=== PATIENT | male | born 1970 | race American Indian/Alaskan Native ===

== ENCOUNTER 2016-09-22 23:00 | Inpatient (IN) | payer MEDICARE, OTHER ==
--- NOTE | ~2016-09-22 | CN ---
Consultation Report [facility] [address] [place]. [address] NAME: ANDREW MEDINA : 66 STATUS : ADM IN PAT#: [id number] AGE: 46 ADM/REG DATE : 09/23/16 MR#: [id number] REPORT SERV DATE: 09/23/16 DICTATED BY: KARTIK VIVAS DATE: 09/23/16 REPORT STATUS : Draft TRANSCRIBED BY: MODTate DATE: 09/23/16 CARDIOLOGY CONSULTATION NOTE DATE OF CONSULTATION: 09/23/2016 REASON FOR CONSULTATION: Chest pain with features of unstable angina. HISTORY OF PRESENT ILLNESS: Mr. Medina is a pleasant 46-year-old man with a history of diabetes, end-stage renal disease, and advanced coronary artery disease. The patient is status post coronary artery bypass grafting surgery in the year 2013. The patient was previously followed by Dr. Grant, but is now in need of a new smoking pipe repairer given Dr. Grant' recent departure from the area. The patient reports that he was in his usual state of health until dialysis yesterday. The patient reports the abrupt onset of a right-sided/substernal "cramping" type chest pain with radiation through to the back. The patient reports an associated sensation of palpitations. He reports that "my heart was beating hard." The patient felt that the symptoms were probably provoked by excess volume removal from hemodialysis. He reports he has had occasional symptoms over the last several months, but these usually resolve following hemodialysis. However, yesterday, the patient continued to have paroxysms of right-sided chest pain lasting approximately five minutes. The patient also continued to have palpitations. He called his event sales representative and was instructed to present to the emergency room. The patient did have some chest pain last night, but this was relieved with nitroglycerin paste. The patient presently denies chest pain, orthopnea, dizziness, or syncope. He does report that during the episode of palpitations, he used a home blood pressure cuff to check his blood pressure and heart rate. His blood pressure was "elevated" with a systolic blood pressure of approximately 170. He reports his heart rate was registering in the 40s. PAST MEDICAL HISTORY: 1. Type 2 diabetes. 2. Coronary artery disease, status post coronary artery bypass grafting surgery. 3. End-stage renal disease. 4. Dyslipidemia. 5. Hypertension. PAST SURGICAL HISTORY: Significant for coronary artery bypass grafting surgery in the year [address] Pisano. The patient has had a left arm AV fistula. He has had ophthalmologic procedures for retinal detachment. FAMILY HISTORY: Positive for coronary heart disease and congestive heart failure in his father, though this did not occur at an early age. Otherwise, noncontributory. SOCIAL HISTORY: The patient reports distant tobacco use during his teenage years, but none Consultation Report [address] [address] NAME: ANDREW MEDINA : 66 STATUS : ADM IN PAT#: [id number] AGE: 46 ADM/REG DATE : 09/23/16 MR#: [id number] REPORT SERV DATE: 09/23/16 DICTATED BY: KARTIK VIVAS DATE: 09/23/16 REPORT STATUS : Draft TRANSCRIBED BY: RAHEEL DATE: 09/23/16 since that time. He denies alcohol or drug use. ALLERGIES: THE PATIENT DENIES MEDICATION ALLERGIES ASIDE FROM THE FACT THAT HE WAS TOLD NOT TO BE EXPOSED TO IODINE CONTRAST DUE TO HIS DIAGNOSIS OF CHRONIC KIDNEY DISEASE. HOME MEDICATIONS: 1. Norvasc 10 mg p.o. q.a.m. 2. Aspirin 81 mg daily. 3. Atorvastatin 40 mg p.o. q.h.s. 4. Plavix 75 mg p.o. daily. 5. Cardura 4 mg p.o. q.h.s. 6. Sliding scale insulin. 7. Metoprolol tartrate 25 mg p.o. twice daily. 8. Torsemide 20 mg p.o. twice daily. PHYSICAL EXAMINATION: VITAL SIGNS: Temperature is 97.7 degrees Fahrenheit, blood pressure is 178/90 mmHg, heart rate is currently 91 beats per minute and regular, and respirations 20. CONSTITUTIONAL: The patient is an obese man in no acute distress. EYES: PERRL, EOMI, clear conjunctiva. HEAD/MNT: NCAT with moist mucous membranes and grossly normal hard and soft palate. NECK: Supple with no obvious thyromegaly or lymphadenopathy CARDIOVASCULAR: There is a regular rhythm with occasional ectopy. There is a normal S1 and a physiologically split second heart sound. No significant murmurs, rubs, or gallops are noted. The jugular venous pressure appears to be grossly normal. PULMONARY: Grossly clear to auscultation bilaterally with no wheezing, rales, rhonchi, or dullness to percussion. ABDOMINAL: Soft, non-tender, non-distended with no hepatosplenomegaly noted. EXTREMITIES: There is trace to 1+ ankle edema with no significant clubbing or cyanosis noted. MUSCULOSKELETAL: Grossly normal strength and range of motion in all extremities INTEGUMENTARY: Skin appears intact with no bruises, wounds or active lesions noted NEURO/PSYC: Alert and oriented x3, with no dysarthria, facial droop or lateralizing weakness noted. IMAGIN-lead EKG: The 12-lead EKG shows normal sinus rhythm with diffuse ST-segment changes which are suggestive of ischemia, though technically nonspecific. LABORATORY DATA: Sodium is 134, potassium 4.1, chloride is 95, BUN 37, creatinine is 5.45, glucose 192. Magnesium is 1.7. Cell count showed a white blood cell count of 8.7, hemoglobin 12, hematocrit 34, platelets 232. INR is 1.0. Troponin I is mildly elevated at 0.13. ASSESSMENT AND PLAN: Consultation Report [place] [id number] [facility] [place]. [address] NAME: ANDREW MEDINA : 66 STATUS : ADM IN [facility]#: [id number] AGE: 46 ADM/REG DATE : 09/23/16 MR#: [id number] REPORT SERV DATE: 09/23/16 DICTATED BY: KARTIK VIVAS DATE: 09/23/16 REPORT STATUS : Draft TRANSCRIBED BY: RAHEEL DATE: 09/23/16 1. Chest pain with features of angina: The patient does give a concerning story for angina. His index chest pain was actually near syncopal event associated with nausea in 2013. The patient, however, has had no significant chest pain aside from occasional episodes during dialysis as noted above. The patient's current symptomatology appears to represent a significant change in his symptoms. I have reviewed the patient's cath films from prior to his bypass surgery in 2013. The patient has extremely diffuse and severe multivessel coronary artery disease. Under the circumstances, I feel that a noninvasive workup would be of limited value. The patient agrees to proceed with cardiac catheterization for definitive diagnosis and management. The patient is currently taking dual anti-platelet therapy and has no overt contraindications to continuing this for at least a year. Risks and benefits of cardiac catheterization including the alternative of a noninvasive workup were discussed with the patient. He agrees to proceed with coronary angiography, bypass graft angiography, and cardiac catheterization tomorrow. 2. Frequent PVCs/bigeminy: Again, this may be related to myocardial ischemia. The patient's heart rate of 40 was likely due to a bigeminal rhythm. For now, the patient will be monitored. We will restart metoprolol, and consider addition of an TOMÁS inhibitor to reduce the patient's blood pressure if this is acceptable to Nephrology. The patient will proceed as described above with cardiac catheterization to evaluate for source of ischemia. A transthoracic echocardiogram will be obtained to evaluate the patient's left ventricular systolic and diastolic function. 3. End-stage renal disease: We will coordinate dialysis with a nephrology service. Thank you for allowing me to participate in the care of Mr. Medina. The cardiology service will continue to follow the patient closely during this hospitalization. RONALDH/RAHEEL Kartik Vivas MD / [id number] CC: Bryce Bone WAYNE S
--- NOTE | ~2016-09-22 | HP ---
History And Physical [place] [address] [place]. [address] NAME: ANDREW MEDINA : 66 STATUS : ADM IN [facility]#: [id number] AGE: 46 ADM/REG DATE : 09/23/16 MR#: [id number] REPORT SERV DATE: 09/23/16 DICTATED BY: ERASMO PAINTING DATE: 09/23/16 REPORT STATUS : Draft TRANSCRIBED BY: MODTate DATE: 09/23/16 DATE OF ADMISSION: 09/23/2016 REASON FOR ADMISSION: End-stage renal disease with a complaint of chest pain. HISTORY OF PRESENT ILLNESS: This is a very pleasant 46-year-old male patient, who dialyzes on a Thursday, Thursday, Thursday schedule at [facility] via a left upper extremity radiocephalic access. He reports to [facility] overnight with a complaint of left substernal chest pain with radiation into the jaw without sweats or associated nausea. Onset yesterday at approximately 1300 hours. He is known to have a previous cardiac history including a CABG x5 vessels approximately three years ago by his recall. He has been seen in consultation by [facility] at our request this morning, and Dr. Vivas is planning for COA with PCI tomorrow. The patient denies current chest pain. No nausea, vomiting, or diarrhea. He is sitting at bedside comfortably with no complaints during evaluation. PAST MEDICAL HISTORY: Includes end-stage renal disease, on Thursday, Thursday, Thursday hemodialysis via a left upper extremity radiocephalic access at [facility]. History is also positive for coronary artery disease with previous CABG x5 vessels. 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 Echocardiogram during previous admission in 09/2013 showed EF of 55% to 60% with LVH, no further data since that previous echo is available to me at this time. REVIEW OF SYSTEMS: Completed, please see HPI for pertinent details. FAMILY HISTORY: Noncontributory and not reviewed during this consultation and admission. SOCIAL HISTORY: No ETOH. No illicit drugs. No tobacco. ALLERGIES: HE LISTS ALLERGIES TO CONTRAST. ACTIVE MEDICATIONS: Include amlodipine 10 mg daily, ASA 81 mg daily, Lipitor 40 mg p.o. q.h.s., Plavix 75 mg p.o. daily, Cardura 4 mg p.o. q.h.s., NovoLog via sliding scale, metoprolol 25 mg p.o. b.i.d., and Demadex 20 mg p.o. b.i.d. PHYSICAL EXAMINATION: VITAL SIGNS: Blood pressure 137/79, temperature 97.1, heart rate at 88 beats per minute and regular, respiratory rate is 16, he is 95% on room air during evaluation. GENERAL: He is in no acute distress, sitting at bedside with no complaints. HEENT: He is normocephalic and atraumatic. Normal ocular movements. No scleral icterus or conjunctival pallor is appreciated. NECK: Supple without thyromegaly. No JVD or mass. CHEST: Shows positive S1 and S2. No rubs, no gallops. LUNGS: Diminished throughout with normal expansion and effort bilaterally. GI: Shows positive bowel sounds in all four quadrants. No appreciable mass or tenderness. History And Physical [address] [address] NAME: ANDREW MEDINA : 66 STATUS : ADM IN [facility]#: [id number] AGE: 46 ADM/REG DATE : 09/23/16 MR#: [id number] REPORT SERV DATE: 09/23/16 DICTATED BY: ERASMO PAINTING DATE: 09/23/16 REPORT STATUS : Draft TRANSCRIBED BY: RAHEEL DATE: 09/23/16 EXTREMITIES: Show positive pulses to all four extremities. No clubbing, cyanosis, or edema. He does have a left radiocephalic access with a palpable bruit and thrill. : Deferred. SKIN: Warm, dry, and intact to visualized surfaces. No rash, lesions, or ecchymosis is detected to cursory visual examination. NEUROLOGIC: He appears to be grossly intact and nonfocal, and he is of appropriate mood and affect. LABORATORY DATA: Pertinent laboratories and imaging to this evaluation are as follows: PA chest and lateral, cardiomegaly, prior CABG, lungs are clear. Last troponin at 0.12. Most recent sodium 134, potassium 4.1, chloride 95, CO2 of 30, BUN 37, creatinine 5.45, reflected GFR 11 mL/minute, glucose of 192, calcium 7.9, and magnesium 1.7. WBC at 8.7, RBC 3.70, hemoglobin 11.7, hematocrit 34.0, platelets 232. IMPRESSION AND PLAN: End-stage renal disease patient, Thursday, Thursday, Thursday at [facility] via a left radiocephalic access, now presenting to [facility] with a complaint of substernal chest pain initiating yesterday at 1300 hours and radiating into his jaw without other concomitant symptomatology. He has a known cardiac history as listed in above past medical history and review of systems and has been seen in consultation by our friends in Cardiology Services. There is a plan in place tomorrow for COA with PCI via [facility] with Dr. Vivas. We appreciate their input and assistance in this patient's care. We will continue to protect his left upper extremity access, continue to provide his home medications, place him on strict I's and Os, daily weights, and plan for hemodialysis per his usual schedule. We will coordinate care with Cardiology Services, particularly tomorrow for planned procedure as above. Further modification of treatment plan may be made based on clinical presentation of the patient, laboratory results, and further consultation with Renal attending. We again appreciate Cardiology for providing assistance with this patient. DICTATED BY: Gopal Gross NP JR/RAHEEL Erasmo Painting M.D. / [id number] CC: Bryce Bone Wayne S
[~2016-09-22 23:00] MED LIST: APRES25 PO; ASAB PO; COREG12 PO; DEMA20 PO; HUMULIN N1 ML SC; HUMULIN R1 ML SC; IMDUR60 PO; L40 PO; L80 PO; LEVEMIR SC; LIPITOR40 PO; LOP25 PO; NEPHROCAPS PO; NORV10 PO; NOVLOGPUMP SC; NOVOLOG SC; PHOSLO PO; PLAVIX PO; PRAVAC PO; PRIN10 PO; PROAIR HFA INH; RENA-VITE PO; SENTAB PO; SODBICAR10 PO; VENTOLIN HFA INH; VITD PO
[2016-09-22 23:35] LABS: BASOPHILS 0.5 %; BASOPHILS ABSOLUTE 0.04 10/3/uL (0.0-0.16); EOSINOPHILS 4.7 %; EOSINOPHILS ABSOLUTE 0.41 10/3/uL (0.0-0.53); IMMATURE GRANULOCYTES 0.3 %; IMMATURE GRANULOCYTES ABSOLUTE 0.03 10/3/uL (0.0-0.11); LYMPHOCYTES 15.3 %; LYMPHOCYTES ABSOLUTE 1.32 10/3/uL (0.67-4.30); MEAN CORPUS HGB CONC 34.4 g/dL (32.0-36.0); MEAN CORPUSCULAR HEMOGLOB 31.6 pg (26.0-34.0); MEAN CORPUSCULAR VOLUME 91.9 fL (80-100); MEAN PLATELET VOLUME 8.7 fL (9.2-13.0); MONOCYTES 6.8 %; MONOCYTES ABSOLUTE 0.59 10/3/uL (0.21-1.20); NEUTROPHILS 72.4 %; NEUTROPHILS ABSOLUTE 6.26 10/3/uL (2.02-8.40); PLATELET COUNT 232 10/3/uL (150-400); RBC DISTRIBUTION WIDTH 14.5 % (12.0-16.0); WHITE BLOOD CELLS 8.7 10/3/uL (4.5-10.5)
[2016-09-22 23:38] LABS: HEMOGLOBIN 11.7 g/dL (13.6-17.8); MANUAL DIFF NO %
[2016-09-22 23:42] LABS: PARTIAL THROMBO TIME 29.2 SEC (22.5-37.2); PROTIME (NOT ORD) 12.6 SEC (12.0-14.5)
[2016-09-22 23:53] LABS: BUN (BLOOD UREA NITROGEN) 37 MG/DL (6-23); CALCIUM, SERUM 7.9 MG/DL (8.5-10.4); CHLORIDE, SERUM 95 MMOL/L (96-112); POTASSIUM, SERUM 4.1 MMOL/L (3.5-5.3); SODIUM, SERUM 134 MMOL/L (135-148)
[2016-09-22 23:57] LABS: CHEST PAIN PROFILE TAT 0 Hrs 28 Mins; CO2 (CARBON DIOXIDE) 30 MMOL/L (24-34); CREATININE 5.45 MG/DL (0.70-1.30); GFR AFRICAN AMERICAN 13 ML/MIN (>=60); GFR NON AFRICAN AMERICAN 11 ML/MIN (>=60); GLUCOSE, SERUM 192 MG/DL (60-99); TROPONIN I 0.13 NG/ML (<0.05)
[2016-09-23] MEDS ORDERED: NORV10 PO (01:33)
[2016-09-23] MEDS ORDERED: CARDU4 PO (01:34)
[2016-09-23] MEDS ORDERED: LIPITOR40 PO (01:34)
[2016-09-23] MEDS ORDERED: LOP50 PO (01:34)
[2016-09-23] MEDS ORDERED: DEMA20 PO (01:36)
[2016-09-23] MEDS ORDERED: NOVLOGPUMP SC (01:38)
[2016-09-23] MEDS ORDERED: ASA5GR PO (01:39)
[2016-09-23] MEDS ORDERED: PLAVIX PO (01:39)
[2016-09-24 07:12] LABS: BASOPHILS 0.4 %; BASOPHILS ABSOLUTE 0.03 10/3/uL (0.0-0.16); EOSINOPHILS 6.4 %; HEMATOCRIT 30.6 % (40.0-51.0); HEMOGLOBIN 10.4 g/dL (13.6-17.8); IMMATURE GRANULOCYTES 0.4 %; IMMATURE GRANULOCYTES ABSOLUTE 0.03 10/3/uL (0.0-0.11); LYMPHOCYTES 19.9 %; LYMPHOCYTES ABSOLUTE 1.56 10/3/uL (0.67-4.30); MEAN CORPUSCULAR VOLUME 91.1 fL (80-100); MEAN PLATELET VOLUME 8.6 fL (9.2-13.0); MONOCYTES 7.5 %; MONOCYTES ABSOLUTE 0.59 10/3/uL (0.21-1.20); NEUTROPHILS 65.4 %; NEUTROPHILS ABSOLUTE 5.11 10/3/uL (2.02-8.40); PLATELET COUNT 203 10/3/uL (150-400); RED CELL COUNT 3.36 10/6/uL (4.7-6.1); WHITE BLOOD CELLS 7.8 10/3/uL (4.5-10.5)
[2016-09-24 07:13] LABS: MANUAL DIFF NO %
[2016-09-24 07:30] LABS: A/G RATIO 0.8 (0.7-1.9); ALBUMIN 3.3 G/DL (3.5-5.0); ALKALINE PHOSPHATASE 136 U/L (45-117); BUN (BLOOD UREA NITROGEN) 60 MG/DL (6-23); CALCIUM, SERUM 7.9 MG/DL (8.5-10.4); CHLORIDE, SERUM 103 MMOL/L (96-112); CO2 (CARBON DIOXIDE) 23 MMOL/L (24-34); GFR AFRICAN AMERICAN 9 ML/MIN (>=60); GFR NON AFRICAN AMERICAN 8 ML/MIN (>=60); GLOBULIN 3.9 G/DL (2.5-4.1); GLUCOSE, SERUM 212 MG/DL (60-99); POTASSIUM, SERUM 5.2 MMOL/L (3.5-5.3); SGPT(ALT) 27 U/L (5-65); SODIUM, SERUM 138 MMOL/L (135-148); TOTAL BILIRUBIN 0.5 MG/DL (0-1.2); TOTAL PROTEIN 7.2 G/DL (6.0-8.5)
[2016-09-24 07:31] LABS: SGOT(AST) 15 U/L (5-40)
[2016-09-24 08:27] LABS: CHOL/HDL RATIO(NOT ORDER) 3.5 (0-5); CHOLESTEROL 131 MG/DL (< 200); HDL CHOLESTEROL 37 MG/DL (> 39); LDL CHOLESTEROL 62 MG/DL (< 130); NON-HDL CHOLESTEROL 94 MG/DL (< 160); TRIGLYCERIDE 160 MG/DL (< 150)
[2016-09-25 01:53] LABS: CALCIUM, SERUM 8.5 MG/DL (8.5-10.4); CHLORIDE, SERUM 104 MMOL/L (96-112); CO2 (CARBON DIOXIDE) 27 MMOL/L (24-34); GFR AFRICAN AMERICAN 12 ML/MIN (>=60); GFR NON AFRICAN AMERICAN 10 ML/MIN (>=60); GLUCOSE, SERUM 208 MG/DL (60-99); POTASSIUM, SERUM 4.6 MMOL/L (3.5-5.3); SODIUM, SERUM 141 MMOL/L (135-148)
[2016-09-25 01:54] LABS: BUN (BLOOD UREA NITROGEN) 39 MG/DL (6-23); CREATININE 5.94 MG/DL (0.70-1.30)
[2016-09-25] MEDS ORDERED: COZ50 PO (13:13)
[2016-09-25] MEDS ORDERED: NITROQUICK0.4 MG SL (13:15)
== END 2016-09-25 13:38 | disposition home or self-care (01) | DRG 286 ==
LOC: ER 23:00 → 6NO 09-23 01:36
PROVIDERS: Emergency Medicine; Internal Medicine Cardiovascular Disease; Internal Medicine Nephrology
PROC: 5A1D00Z (ICD-10-PCS; principal; 2016-09-24)
PROC: 4A023N7 Measurement of Cardiac Sampling and Pressure, Left Heart, Percutaneous Approach (ICD-10-PCS; 2016-09-24)
PROC: B2111ZZ Fluoroscopy of Multiple Coronary Arteries using Low Osmolar Contrast (ICD-10-PCS; 2016-09-24)
PROC: B2131ZZ Fluoroscopy of Multiple Coronary Artery Bypass Grafts using Low Osmolar Contrast (ICD-10-PCS; 2016-09-24)
PROC: B2181ZZ Fluoroscopy of Left Internal Mammary Bypass Graft using Low Osmolar Contrast (ICD-10-PCS; 2016-09-24)
PROC: B2151ZZ Fluoroscopy of Left Heart using Low Osmolar Contrast (ICD-10-PCS; 2016-09-24)
DX: I25.110 Atherosclerotic heart disease of native coronary artery with unstable angina pectoris (principal); N18.6 End stage renal disease; I12.0 Hypertensive chronic kidney disease with stage 5 chronic kidney disease or end stage renal disease; E11.22 Type 2 diabetes mellitus with diabetic chronic kidney disease; Z68.41 Body mass index [BMI] 40.0-44.9, adult; E11.40 Type 2 diabetes mellitus with diabetic neuropathy, unspecified; E11.319 Type 2 diabetes mellitus with unspecified diabetic retinopathy without macular edema; I34.0 Nonrheumatic mitral (valve) insufficiency; I25.5 Ischemic cardiomyopathy; D64.9 Anemia, unspecified; I73.9 Peripheral vascular disease, unspecified; I49.3 Ventricular premature depolarization; E78.5 Hyperlipidemia, unspecified; E66.9 Obesity, unspecified; J45.909 Unspecified asthma, uncomplicated; Z95.1 Presence of aortocoronary bypass graft; Z99.2 Dependence on renal dialysis; Z91.041 Radiographic dye allergy status; Z79.82 Long term (current) use of aspirin; Z79.4 Long term (current) use of insulin
CPT/HCPCS: 71020; 80048; 80053; 80061; 82962; 83735; 84484; 85025; 85610; 85730; 93005; 93459; 99152; 99153; 99285; A9270-GY; C1760; C1769; C1894; G0257; J2250; J3010; Q9967

== ENCOUNTER 2016-09-26 04:22 | Inpatient (IN) | payer MEDICARE, OTHER ==
--- NOTE | ~2016-09-26 | DS ---
Discharge Summary [facility] [address] [facility] [place]. [address] NAME: ANDREW MEDINA : 66 STATUS : DIS IN PAT#: [id number] AGE: 46 ADM/REG DATE : 09/26/16 MR#: [id number] REPORT SERV DATE: 10/09/16 DICTATED BY: ERASMO PAINTING DATE: 10/08/16 REPORT STATUS : Draft TRANSCRIBED BY: RAHEEL DATE: 10/08/16 Data Collection from hospitalization DISCHARGE DIAGNOSES: 1. Acute left frontal/parietal cerebrovascular accident. 2. End-stage renal disease. 3. Type 2 diabetes mellitus. 4. Hypertension. 5. Anemia. 6. Hyperlipidemia. 7. Coronary artery disease. 8. Neuropathy. 9. Morbid obesity. 10.Retinopathy. CONSULTATION: Katy Rod [facility] PROCEDURES PERFORMED: 1. CT scan of the brain without contrast on 09/26/2016. 2. MRI of the brain without contrast on 09/26/2016. 3. Carotid blood flow study on 09/27/2016. MEDICATIONS: Norvasc 10 mg every morning, aspirin 325 mg daily, Lipitor 40 mg at bedtime, Plavix 75 mg every evening, Cardura 4 mg at bedtime, NovoLog injection insulin as instructed, Cozaar 50 mg daily, Lopressor 50 mg twice a day, NitroQuick 0.4 mg sublingually as needed, and Demadex 20 mg twice a day. CONDITION AT DISCHARGE: Stable. DISPOSITION: The patient was discharged home on a renal diet with activities as instructed. He would follow up for dialysis Thursday following discharge. HOSPITAL COURSE: This is a 46-year-old male who dialyzes on Mondays, Wednesdays, and Fridays via a left upper extremity radiocephalic fistula. He was recently admitted here on 09/23/2016 with complaints of chest pain with radiation to the jaw. He subsequently underwent cardiac catheterization, which revealed cardiac disease distally that was unamenable to stenting. He was released home from our care here on 09/25/2016 and he returned on the day of this admission on 09/26/2016, complaining of unilateral weakness and tingling. He reported that the onset of activity occurred at approximately late the previous evening. He had noticed weakness by his account and reported tingling to touch of his entire right side of his body. He described no associated headaches, loss of visual chu, or other complaints, but he did have weakness in the right upper extremity on rudimentary testing. He was admitted to the hospital at this time for further evaluation and treatment. Upon admission, a CT scan of the brain without contrast was negative. B12, folic acid, magnesium, phosphorus, and ionized calcium would be performed to rule out electrolyte abnormalities. He would be dialyzed. An MRI of the brain without contrast was also Discharge Summary [address] [address] NAME: ANDREW MEDINA : 66 STATUS : DIS IN PAT#: [id number] AGE: 46 ADM/REG DATE : 09/26/16 MR#: [id number] REPORT SERV DATE: 10/09/16 DICTATED BY: ERASMO PAINTING DATE: 10/08/16 REPORT STATUS : Draft TRANSCRIBED BY: RAHEEL DATE: 10/08/16 performed. There was a band of light area of acute ischemic cortical infarct at the superior left frontoparietal lobe cortex along the midline falx. No other acute intracranial pathology was seen. There was a small mucous retention cyst, posterior floor of the right maxillary sinus. He was seen by Katy Rdo regarding possible stroke. Aspirin was increased. Lipitor was also increased. He was continued on Plavix. Creatinine level was 8.94. 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 He also has a visual defect in the left eye. The following day, he was in no acute distress. He could ambulate with a walker. His lungs were clear bilaterally. Supportive care continued. He was evaluated by Occupational and Physical Therapy. Echocardiogram was performed as well as a carotid blood flow study. He was felt to have probable obstructive sleep apnea. This would need to be evaluated as an outpatient. Over the next couple of days, he remained stable. Discharge planning was performed. His carotid blood flow study had shown category 1 disease. On 09/29/2016, we spoke with the patient with regard to his stroke risk factor reduction. Occupational Therapy evaluated the patient. Hemodialysis therapy was performed. Discharge instructions were given. Due to his improved and stable condition, he was discharged home with the above-stated instructions. Information collected by: Shruthi Fleming I submit the above information as my discharge summary. EMILIE/RAHEEL Erasmo Painting M.D. / [id number] CC: Erasmo Painting M.D.
--- NOTE | ~2016-09-26 | CN ---
Consultation Report [facility] [address] [place]. [address] NAME: ANDREW MEDINA : 66 STATUS : ADM Stefania PAT#: [id number] AGE: 46 ADM/REG DATE : 09/26/16 MR#: [id number] REPORT SERV DATE: 09/26/16 DICTATED BY: FRANSICO BROWN DATE: 09/26/16 REPORT STATUS : Draft TRANSCRIBED BY: MODTate DATE: 09/26/16 NEUROLOGY CONSULTATION DATE OF CONSULTATION: 09/26/2016 REASON FOR CONSULTATION: Possible stroke. NEPHROLOGISTS: 1. Gopal Gross NP. 2. Dimas Tan M.D. HISTORY OF PRESENT ILLNESS: The patient is a 46-year-old male who has a history of end-stage renal disease. He dialyzes on Thursday, Thursday, and Thursday. Early this morning, the patient woke up at approximately 1:30. He had fallen asleep in the chair and when he woke up, he complained of numbness and weakness on the right side of his body. He tried to get up out of the chair and found that he was dizzy. When asked to describe the dizzy, he described it as imbalance. He also complained of double vision which was new for him. He denied any slurred speech, any aphasia, or visual changes. The patient has a long-standing history of retinopathy and is nearly blind in his right eye. He also has a visual deficit in his left eye. He denied any changes on the left side of his body. Concerned because of the sudden onset of changes and the numbness on the right side of his body, he called 911 and was brought to the emergency department. Once evaluated in the emergency room, he was admitted for evaluation for a possible stroke. PAST MEDICAL HISTORY: Coronary artery disease, hypertension, diabetes mellitus type 2, neuropathy, retinopathy, proteinuria, nephrotic syndrome, anemia, morbid obesity, and chronically elevated troponin. PAST SURGICAL HISTORY: Coronary artery bypass grafting, left AV fistula placement, and retinal detachment repair. HOME MEDICATIONS: List consists of Norvasc 10 mg daily, aspirin 81 mg daily, Lipitor 40 mg at bedtime, Plavix 75 mg daily, Cardura 4 mg at bedtime, NovoLog insulin pump, Cozaar 50 mg daily, Lopressor 50 mg b.i.d., nitroglycerin p.r.n., and Demadex 20 mg b.i.d. ALLERGIES: NONE. SOCIAL HISTORY: The patient is . He has two sons. He is a from [place]. He is from [place] [facility] [place]. He does not smoke now. He smoked in his teens. He does not drink alcohol or use illicit drugs. FAMILY HISTORY: His mother ; mother and father both had end-stage renal disease and diabetes. He has 13-15 siblings, who have the same health issues that he does. Consultation Report [place] [id number] [facility] [place]. [address] NAME: ANDREW MEDINA : 66 STATUS : ADM Stefania PAT#: [id number] AGE: 46 ADM/REG DATE : 09/26/16 MR#: [id number] REPORT SERV DATE: 09/26/16 DICTATED BY: FRANSICO BROWN DATE: 09/26/16 REPORT STATUS : Draft TRANSCRIBED BY: RAHEEL DATE: 09/26/16 REVIEW OF SYSTEMS: For pertinent positives, see HPI. PHYSICAL EXAMINATION: VITAL SIGNS: The patient is a 46-year-old male, who stands 5 feet 4 inches tall and weighs 250 pounds. He is afebrile. Heart rate 96, respiratory rate 18, O2 saturations on room air 97%, blood pressure is 167/77. NEURO: He is alert. He is oriented x4, pleasant, somewhat quiet, but communicates appropriately. There is no dysarthria. No aphasia. Speech is clear. Language is fluent. Pupils are 3 mm, PERRLA. Cranial nerves relatively intact although he does have a left- sided facial droop. Slight dysconjugate gaze. Vision out of the right eye is very limited, and he has right hemianopsia noted in the left eye. He does have slight horizontal diplopia which is binocular. Reported numbness on the right side of his face. He can move all extremities x4. He does have slight ataxia with ancwsy-ox-uojo on the right and heel-to- chatterjee on the right. He does have a right pronator drift. Upper extremity strength is a 3/5 on the right and 5/5 on the left. Reported diminished sensation on the right. DTRs are 1+ at best bilaterally. Lower extremity strength is a 3/5 on the right and a 5/5 on the left. Patellar DTRs absent. Plantar reflex is silent on the right and downgoing on the left. Again, reported decreased sensation on the right side compared to the left. NECK: No carotid bruits, JVD, or thyromegaly. CHEST: Lung sounds clear. CARDIAC: Regular rate and rhythm. LABORATORY DATA: CBC is normal. BMP shows a BUN of 68, creatinine 8.94, glucose is 240. Troponin 0.12 (that was back on the of this month). CT of the brain: No acute changes. NIH stroke scale score total is a 7. ASSESSMENT/PLAN: 1. Probable stroke with resultant right hemiparesis, horizontal diplopia, left facial droop, and ataxia. The patient will undergo an MRI of the brain without gadolinium, carotid duplex study, and echocardiogram with bubble study. Lab work, PT/OT consult, case management consult for rehab placement. His aspirin will be increased to 325 mg. His Lipitor will be increased to 80 mg, and he will be continued on his Plavix 75 mg daily. The patient was educated on controlling risk factors. 2. End-stage renal disease. 3. Diabetes mellitus type 2. 4. Hypertension. Thank you again for including us in consultation. We will continue to follow. AQUILINO/RAHEEL Consultation Report [address] [address] NAME: ANDREW MEDINA : 66 STATUS : ADM Stefania PAT#: [id number] AGE: 46 ADM/REG DATE : 09/26/16 MR#: [id number] REPORT SERV DATE: 09/26/16 DICTATED BY: FRANSICO BROWN DATE: 09/26/16 REPORT STATUS : Draft TRANSCRIBED BY: RAHEEL DATE: 09/26/16 BLUE Cornejo- / [id number] CC: Bryce Martinez SONJA B John Richardson, NP Nathan Chamberlain, M.D.
--- NOTE | ~2016-09-26 | HP ---
History And Physical [place] [id number] [facility] [place]. [address] NAME: ANDREW MEDINA : 66 STATUS : ADM IN [facility]#: [id number] AGE: 46 ADM/REG DATE : 09/26/16 MR#: [id number] REPORT SERV DATE: 09/26/16 DICTATED BY: ERASMO TAN DATE: 09/26/16 REPORT STATUS : Draft TRANSCRIBED BY: MODTate DATE: 09/26/16 DATE OF ADMISSION: 09/26/2016 REASON FOR ADMISSION: Unilateral weakness with question of CVA. HISTORY OF PRESENT ILLNESS: This is a very pleasant 46-year-old male patient who dialyzes on a Fxdnoz-Uqjjdixju-Midfel schedule via left upper extremity radiocephalic fistula [place] [facility]. He was recently admitted here on 09/23/2016 with a complaint of chest pain with radiation to the jaw. He subsequently underwent cardiac catheterization revealing cardiac disease distally that was unamenable to stenting. He was released home from our care here on 09/25/2016 and he returns today on 09/26/2016 with a complaint of unilateral weakness and tingling. The patient reports onset of activity approximately late last evening. He does have noted weakness by his account and reports tingling to touch of his entire right side of his body. He describes no associated headaches, loss of visual field, or other complaints, but does have a noted weakness to his right upper extremity on rudimentary testing. He is awake and alert. Denies current chest pain. No nausea, vomiting, or diarrhea. PAST MEDICAL HISTORY: Positive for end-stage renal disease, Thursday, Thursday, Thursday hemodialysis via left upper extremity radiocephalic fistula at [facility]. History also positive for coronary artery disease, previous CABG x5, with recent admission for chest pain with distal occlusion noted to small vessel, not amenable to PCI, with an ejection fraction noted at 40% with ARB added prior to discharge. Remainder of his history is positive for hypertension, insulin-dependent diabetes mellitus with neuropathy, retinopathy, proteinuria, and anemia. REVIEW OF SYSTEMS: Completed. Please see HPI for pertinent details. FAMILY HISTORY: Noncontributory and not reviewed during this admission. SOCIAL HISTORY: No ETOH. No illicit drugs. No tobacco. ALLERGIES: HE LISTS ALLERGIES PREVIOUSLY TO CONTRAST, NOW LISTED NO KNOWN ALLERGIES. ACTIVE MEDICATIONS: Include amlodipine 10 mg p.o. daily, ASA 81 mg daily, Lipitor 40 mg p.o. at bedtime, Plavix 75 mg p.o. daily, Cardura 4 mg p.o. at bedtime, NovoLog via sliding scale, Cozaar 50 mg p.o. daily that was started during his most recent admission, metoprolol 50 mg p.o. b.i.d., nitroglycerin sublingual 0.4 p.r.n., and Demadex 20 mg p.o. daily. PHYSICAL EXAMINATION: VITAL SIGNS: Blood pressure at 158/84, temperature 98.0, respiratory rate 18, heart rate 97 beats per minute, 95% on room air. GENERAL: He is awake, alert, oriented x3 in no acute distress, lying in bed during evaluation. HEENT: Normocephalic and atraumatic. Normal ocular movements. No scleral icterus. No conjunctival pallor is appreciated. History And Physical [address] [address] NAME: ANDREW MEDINA : 66 STATUS : ADM IN [facility]#: [id number] AGE: 46 ADM/REG DATE : 09/26/16 MR#: [id number] REPORT SERV DATE: 09/26/16 DICTATED BY: ERASMO TAN DATE: 09/26/16 REPORT STATUS : Draft TRANSCRIBED BY: RAHEEL DATE: 09/26/16 NECK: Supple without thyromegaly. No JVD or mass. CHEST: Shows positive S1 and S2. No rubs or gallops. LUNGS: Diminished, but clear to auscultation throughout. Normal expansion and effort bilaterally. GI: Shows a rounded obese abdomen. Nontender and nondistended. Palpable bowel sounds in all four quadrants. No appreciable mass or tenderness. : Deferred. NEUROLOGIC: Overall grossly intact; however, he does have noted weakness to the right side of his body. Rudimentary testing would elicit a 2/4 strength ability to his right upper and right lower extremities. He is able to lift his limbs against gravity, but does complain of ongoing tingling to his right upper extremities and right lower extremities. He does have a compromised visual field in his right side, however, this is a noted previous derangement for this patient who has not worsened by his assessment this morning. SKIN: Warm, dry, and intact to the visualized surfaces. No rash, lesions, or ecchymosis noted. PSYCH: He is of appropriate mood and affect. PERTINENT LABORATORIES AND IMAGING: To this evaluation are as follows: CT of the brain without contrast continues to be normal. Electrolyte profile: Sodium 138, potassium 4.8, chloride 102, CO2 of 24, BUN 68, creatinine 8.94, reflected GFR at 6 mL/minute. Glucose 240, calcium 8.1. CBC: White blood cell count 9.3, RBC 3.40, hemoglobin 10.3, hematocrit 31.4, and platelets 217. IMPRESSION AND PLAN: End-stage renal disease patient, recent admission for chest pain with percutaneous coronary intervention with non-amenable cardiac disease to stent, now returns post-discharge with a complaint of unilateral weakness with noted weakness to his right side, particularly on rudimentary testing with left side appearing to be intact. CT of the brain is negative. There was a question regarding hardware in his body that would or would not prevent MRI. Neurology will be asked to evaluate the patient. We will gather cursory laboratories including B12, folic acid, magnesium, phosphorus, and ionized calcium to rule out electrolyte abnormalities as contributing to his current state, continue to maintain his regular dialysis schedule; he will dialyze today via 2K bath. Protect his access, sliding scale, home medications, renal ADA diet. Further modification of treatment plan to be made based on clinical presentation of the patient, laboratory results, further consultation with renal attending. We appreciate the assistance of neurology services in providing care and input regarding this patient. DICTATED BY: Gopal Gross NP JR/RAHEEL Erasmo Tan M.D. History And Physical [address] [address] NAME: ANDREW MEDINA : 66 STATUS : ADM IN [facility]#: [id number] AGE: 46 ADM/REG DATE : 09/26/16 MR#: [id number] REPORT SERV DATE: 09/26/16 DICTATED BY: ERASMO TAN DATE: 09/26/16 REPORT STATUS : Draft TRANSCRIBED BY: RAHEEL DATE: 09/26/16 / [id number] CC: Erasmo Tan M.D.
[~2016-09-26 04:22] MED LIST changes: +ASA5GR PO; +CARDU4 PO; +COZ50 PO; +LOP50 PO; +NITROQUICK0.4 MG SL
[2016-09-26 04:27] LABS: BASOPHILS 0.5 %; BASOPHILS ABSOLUTE 0.05 10/3/uL (0.0-0.16); EOSINOPHILS 6.4 %; ER CBC TAT 0 Hrs 10 Mins; HEMATOCRIT 31.4 % (40.0-51.0); HEMOGLOBIN 10.3 g/dL (13.6-17.8); IMMATURE GRANULOCYTES 0.5 %; IMMATURE GRANULOCYTES ABSOLUTE 0.05 10/3/uL (0.0-0.11); LYMPHOCYTES 13.9 %; MEAN CORPUS HGB CONC 32.8 g/dL (32.0-36.0); MEAN CORPUSCULAR HEMOGLOB 30.3 pg (26.0-34.0); MEAN CORPUSCULAR VOLUME 92.4 fL (80-100); MEAN PLATELET VOLUME 8.9 fL (9.2-13.0); MONOCYTES 7.7 %; MONOCYTES ABSOLUTE 0.72 10/3/uL (0.21-1.20); PLATELET COUNT 217 10/3/uL (150-400); RBC DISTRIBUTION WIDTH 14.7 % (12.0-16.0); WHITE BLOOD CELLS 9.3 10/3/uL (4.5-10.5)
[2016-09-26 04:28] LABS: MANUAL DIFF NO %
[2016-09-26 04:30] LABS: PROTIME (NOT ORD) 13.3 SEC (12.0-14.5)
[2016-09-26 04:31] LABS: PARTIAL THROMBO TIME 29.8 SEC (22.5-37.2)
[2016-09-26 04:36] LABS: CALCIUM, SERUM 8.1 MG/DL (8.5-10.4); CHLORIDE, SERUM 102 MMOL/L (96-112); CO2 (CARBON DIOXIDE) 24 MMOL/L (24-34); GFR AFRICAN AMERICAN 7 ML/MIN (>=60); GFR NON AFRICAN AMERICAN 6 ML/MIN (>=60); GLUCOSE, SERUM 240 MG/DL (60-99); POTASSIUM, SERUM 4.8 MMOL/L (3.5-5.3); SODIUM, SERUM 138 MMOL/L (135-148)
[2016-09-26 04:38] LABS: BUN (BLOOD UREA NITROGEN) 68 MG/DL (6-23); CREATININE 8.94 MG/DL (0.70-1.30)
[2016-09-26 13:51] LABS: CALCIUM IONIZED 4.58 MG/DL (3.80-4.80)
[2016-09-26 14:29] LABS: CHOL/HDL RATIO(NOT ORDER) 3.4 (0-5); PHOSPHORUS, SERUM 2.9 MG/DL (2.5-4.5)
[2016-09-26 14:31] LABS: FOLATE 4.5 NG/ML (>5.2)
[2016-09-26 14:35] LABS: HEPATITIS B SURFACE ANTIGEN NON-REACTIVE (NON-REACT)
[2016-09-26 15:02] LABS: HEPATITIS C ANTIBODY NON-REACTIVE (NON-REACT)
[2016-09-26 15:03] LABS: HEPATITIS B CORE AB IGM NON-REACTIVE (NON-REAC); HIV COMBO NON-REACTIVE (NON REAC)
[2016-09-26 15:04] LABS: HEP A ANTIBODY IGM NON-REACTIVE (NON-REACT)
[2016-09-26 15:32] LABS: GLYCOHEMOGLOBIN (HbA1c) 8.5 % (4.7-6.1)
[2016-09-27 05:40] LABS: BASOPHILS 0.5 %; BASOPHILS ABSOLUTE 0.04 10/3/uL (0.0-0.16); EOSINOPHILS 5.9 %; EOSINOPHILS ABSOLUTE 0.46 10/3/uL (0.0-0.53); HEMATOCRIT 30.6 % (40.0-51.0); HEMOGLOBIN 10.4 g/dL (13.6-17.8); IMMATURE GRANULOCYTES 0.4 %; IMMATURE GRANULOCYTES ABSOLUTE 0.03 10/3/uL (0.0-0.11); LYMPHOCYTES 17.1 %; LYMPHOCYTES ABSOLUTE 1.34 10/3/uL (0.67-4.30); MANUAL DIFF NO %; MEAN CORPUSCULAR VOLUME 91.3 fL (80-100); MEAN PLATELET VOLUME 8.7 fL (9.2-13.0); MONOCYTES 7.3 %; MONOCYTES ABSOLUTE 0.57 10/3/uL (0.21-1.20); NEUTROPHILS 68.8 %; NEUTROPHILS ABSOLUTE 5.38 10/3/uL (2.02-8.40); PLATELET COUNT 208 10/3/uL (150-400); RBC DISTRIBUTION WIDTH 14.7 % (12.0-16.0); RED CELL COUNT 3.35 10/6/uL (4.7-6.1); WHITE BLOOD CELLS 7.8 10/3/uL (4.5-10.5)
[2016-09-27 05:54] LABS: ALBUMIN 3.2 G/DL (3.5-5.0); CALCIUM, SERUM 8.1 MG/DL (8.5-10.4); CHLORIDE, SERUM 101 MMOL/L (96-112); CO2 (CARBON DIOXIDE) 25 MMOL/L (24-34); GLUCOSE, SERUM 211 MG/DL (60-99); POTASSIUM, SERUM 4.3 MMOL/L (3.5-5.3); SODIUM, SERUM 139 MMOL/L (135-148)
[2016-09-27 05:55] LABS: BUN (BLOOD UREA NITROGEN) 47 MG/DL (6-23); CREATININE 6.79 MG/DL (0.70-1.30); GFR AFRICAN AMERICAN 10 ML/MIN (>=60); GFR NON AFRICAN AMERICAN 9 ML/MIN (>=60); PHOSPHORUS, SERUM 5.3 MG/DL (2.5-4.5)
[2016-09-29 13:17] LABS: BASOPHILS 0.5 %; BASOPHILS ABSOLUTE 0.04 10/3/uL (0.0-0.16); EOSINOPHILS 6.5 %; EOSINOPHILS ABSOLUTE 0.53 10/3/uL (0.0-0.53); HEMATOCRIT 28.9 % (40.0-51.0); HEMOGLOBIN 10.1 g/dL (13.6-17.8); IMMATURE GRANULOCYTES 0.4 %; IMMATURE GRANULOCYTES ABSOLUTE 0.03 10/3/uL (0.0-0.11); LYMPHOCYTES 15.5 %; LYMPHOCYTES ABSOLUTE 1.27 10/3/uL (0.67-4.30); MEAN CORPUS HGB CONC 34.9 g/dL (32.0-36.0); MEAN CORPUSCULAR HEMOGLOB 31.2 pg (26.0-34.0); MEAN CORPUSCULAR VOLUME 89.2 fL (80-100); MEAN PLATELET VOLUME 8.8 fL (9.2-13.0); MONOCYTES 5.3 %; MONOCYTES ABSOLUTE 0.43 10/3/uL (0.21-1.20); NEUTROPHILS 71.8 %; NEUTROPHILS ABSOLUTE 5.89 10/3/uL (2.02-8.40); PLATELET COUNT 213 10/3/uL (150-400); RBC DISTRIBUTION WIDTH 14.6 % (12.0-16.0); RED CELL COUNT 3.24 10/6/uL (4.7-6.1); WHITE BLOOD CELLS 8.2 10/3/uL (4.5-10.5)
[2016-09-29 13:26] LABS: MANUAL DIFF NO %
[2016-09-29 13:29] LABS: ALBUMIN 3.4 G/DL (3.5-5.0); CALCIUM, SERUM 7.7 MG/DL (8.5-10.4); CHLORIDE, SERUM 100 MMOL/L (96-112); CO2 (CARBON DIOXIDE) 21 MMOL/L (24-34); PHOSPHORUS, SERUM 5.5 MG/DL (2.5-4.5); SODIUM, SERUM 133 MMOL/L (135-148)
[2016-09-29 13:32] LABS: BUN (BLOOD UREA NITROGEN) 86 MG/DL (6-23); CREATININE 8.85 MG/DL (0.70-1.30); GFR AFRICAN AMERICAN 7 ML/MIN (>=60); GFR NON AFRICAN AMERICAN 6 ML/MIN (>=60); GLUCOSE, SERUM 320 MG/DL (60-99); POTASSIUM, SERUM 5.3 MMOL/L (3.5-5.3)
== END 2016-09-29 17:39 | disposition home or self-care (01) | DRG 64 ==
LOC: ER 04:22 → 1SO 05:04
PROVIDERS: Emergency Medicine; Nurse Practitioner; Registered Nurse
PROC: 5A1D60Z (ICD-10-PCS; principal; 2016-09-26)
DX: I63.9 Cerebral infarction, unspecified (principal); N18.6 End stage renal disease; E11.22 Type 2 diabetes mellitus with diabetic chronic kidney disease; I12.0 Hypertensive chronic kidney disease with stage 5 chronic kidney disease or end stage renal disease; G81.91 Hemiplegia, unspecified affecting right dominant side; Z68.41 Body mass index [BMI] 40.0-44.9, adult; H53.2 Diplopia; R27.0 Ataxia, unspecified; Z99.2 Dependence on renal dialysis; E11.40 Type 2 diabetes mellitus with diabetic neuropathy, unspecified; E11.319 Type 2 diabetes mellitus with unspecified diabetic retinopathy without macular edema; E66.01 Morbid (severe) obesity due to excess calories; Z83.3 Family history of diabetes mellitus; Z84.1 Family history of disorders of kidney and ureter; G47.33 Obstructive sleep apnea (adult) (pediatric)
CPT/HCPCS: 70450; 70551; 80048; 80061; 80069; 80074; 82140; 82330; 82533; 82607; 82746; 82962; 83036; 83735; 84100; 85025; 85610; 85730; 87389; 93005; 93880; 97116-GP; 97162-GP; 97165-GO; 99285; A9270-GY; C8929; G0257; G8978-CK-GP; G8979-CI-GP; G8987-CJ-GO; G8988-CJ-GO; G8989-CJ-GO; Q9957